=== PATIENT | female | born 1975 | race Caucasian/White ===

== ENCOUNTER → 2018-04-22 12:09 | Outpatient (CLI) | payer MEDICAID, SELFPAY ==
[2018-04-22 12:38] LABS: Basophils # 0.1 K/mm3 (0-0.2); Basophils % 0.8 % (0.1-2.0); Eosinophils # 0.2 K/mm3 (0.0-0.4); Eosinophils % 2.5 % (0.1-12.0); Hematocrit 44.2 % (37.0-47.0); Hemoglobin 14.1 g/dL (12.2-16.2); Lymphocytes # 1.4 K/mm3 (0.7-4.5); Lymphocytes % 22.5 % (10-50); Mean Corpuscular HGB Conc 31.8 g/dL (31.8-35.4); Mean Corpuscular Hemoglobin 30.5 pg (27.0-31.2); Mean Corpuscular Volume 95.8 fl (81-99); Mean Platelet Volume 7.1 fl (7.4-10.4); Monocytes # 0.2 K/mm3 (0.1-1.0); Neutrophils # 4.5 K/mm3 (1.8-7.8); Neutrophils % 71.3 % (37.0-80.0); Platelet Count 262 K/mm3 (142-424); Red Blood Count 4.62 M/mm3 (4.20-5.40); Red Cell Distribution Width 13.3 % (11.5-17.5); White Blood Count 6.3 K/mm3 (4.8-10.8)
[2018-04-22 13:24] LABS: Alanine Aminotransferase 21 U/L (12-78); Albumin Level 4.1 gm/dL (3.4-5.0); Albumin/Globulin Ratio 1.4 (1.1-1.8); Alkaline Phosphatase 62 U/L (46-116); Aspartate Amino Transferase 10 U/L (15-37); Bilirubin,Total 0.4 mg/dL (0.2-1.0); Blood Urea Nitrogen 8 mg/dL (7-18); Calcium 8.7 mg/dL (8.5-10.1); Carbon Dioxide 23 mmol/L (21.0-32.0); Chloride 108 mmol/L (98-107); Chol/HDL Ratio 4.6 (1-3.5); Cholesterol 172 mg/dL (140-200); Creatinine,Serum 0.91 mg/dL (0.55-1.02); Estimated Glomerular Filt Rate 68 ml/min (>60); GFR (African American) 82 ML/MIN (>60); Glucose 84 mg/dL (74-106); HDL Cholesterol 37 mg/dL (29-89); LDL Cholesterol 122 mg/dL (0-130); Sodium 142 mmol/L (136-145); T4 (Thyroxine) 8.9 ug/dl (4.7-13.3); Thyroid Stimulating Hormone 3.34 uIU/ml (0.358-3.740); Total Protein,Serum 7.1 gm/dL (6.4-8.2); Triglycerides 64 mg/dL (30-200); Triiodothryronine (T3) Uptake 34 % (31-39); VLDL Cholesterol 13 mg/dL (0-40)
[2018-04-23 10:32] LABS: Vitamin B12 301 pg/mL (232-1245)
== END ==
PROVIDERS: Visit Provider Internal Medicine Adolescent Medicine
DX: E78.2 Mixed hyperlipidemia (principal); F31.78 Bipolar disorder, in full remission, most recent episode mixed
CPT/HCPCS: 36415; 80053; 80061; 82607; 84436; 84443; 84479; 85025

== ENCOUNTER → 2018-08-16 12:10 | Outpatient (CLI) | payer MEDICAID, SELFPAY ==
--- NOTE | 2018-08-16 12:16 | NVE_ITS ---
Venous Exam Indications: 729.5 Pain in limb. IMPRESSIONS 1. There is no evidence of significant Reflux. 2. No evidence of deep or superficial vein thrombosis involving the left lower extremity Left lower extremity venous duplex evaluation. Doppler flow study including spectral analysis, color and paul scale imaging. Location: Vascular laboratory. Patient status: Outpatient. CRITICAL FINDINGS - Reported to: [facility] Ric - Read back and verified. - 08/16/18 - 1230 - Negative Tables: Venous flow and imaging: + +-------+ + Location Overall Flow properties + +-------+ + Left common femoral Patent Normal phasicity; spontaneous; normal augmentation; compressible + +-------+ + Left saphenofemoral junction Patent Compressible + +-------+ + Left profunda femoral Patent Compressible + +-------+ + Left femoral Patent Normal phasicity; spontaneous; normal augmentation; compressible + +-------+ + Left greater saphenous Patent Normal phasicity; spontaneous; normal augmentation; compressible + +-------+ + Left popliteal Patent Normal phasicity; spontaneous; normal augmentation; compressible + +-------+ + Left posterior tibial Patent Compressible + +-------+ + Left peroneal Patent Compressible + +-------+ + Left gastrocnemius Patent Compressible + +-------+ + Left soleal Patent Compressible + +-------+ + (Report amended ) Electronically signed by: Kodak Santos [id number]
== END ==
PROVIDERS: PCP Internal Medicine Adolescent Medicine; Visit Provider Nurse Practitioner Family
DX: M79.662 Pain in left lower leg (principal); M79.89 Other specified soft tissue disorders
CPT/HCPCS: 93971

== ENCOUNTER → 2018-11-15 14:49 | Outpatient (CLI) | payer MEDICAID, SELFPAY ==
--- NOTE | 2018-11-15 14:53 | XR_ITS ---
XR wrist LT w scaphoid CLINICAL INDICATION: ITS.REASON: scaphoid fracture ORDERING PHYSICIAN: Arabella Shepherd MD PATIENT AGE: 42 years Comparison: None FINDINGS: Bone density is normal except for 5 mm sclerotic density at the medial epiphysis of the radius. There is no acute fracture. Soft tissues and alignment appears normal. There is asymmetry of the intercarpal joint spaces and this is more prominent between the scaphoid and lunate bone measuring 2.7 mm. There is no scaphoid fracture. Impression: No acute fracture. Relative widening of the scapholunate intercarpal space compared to the other spaces. Correlate clinically since intercarpal ligament injury is not ruled out.
== END ==
PROVIDERS: PCP Internal Medicine Adolescent Medicine; Visit Provider Orthopaedic Surgery
DX: M95.8 Other specified acquired deformities of musculoskeletal system (principal); S62.002A Unspecified fracture of navicular [scaphoid] bone of left wrist, initial encounter for closed fracture
CPT/HCPCS: 73110

== ENCOUNTER → 2018-12-02 08:30 | Outpatient (CLI) | payer MEDICAID, SELFPAY ==
--- NOTE | 2018-12-02 08:34 | XR_ITS ---
XR wrist LT w scaphoid HISTORY pain ITS.REASON: lt scaphoid fracture ORDERING PHYSICIAN: Arabella Shepherd MD PATIENT AGE: 42 years Comparison: 11/15/2018 FINDINGS: No fracture or dislocation. No lytic or blastic change. There is normal mineralization.. The joint spaces are well-preserved. No significant degenerative/arthritic changes. No erosive changes evident.. There is a small area sclerosis involving subarticular portion of the distal radius medially. Scapholunate space on today's exam has an unremarkable appearance. IMPRESSION: No acute finding
== END ==
PROVIDERS: PCP Internal Medicine Adolescent Medicine; Visit Provider Orthopaedic Surgery
DX: S62.002A Unspecified fracture of navicular [scaphoid] bone of left wrist, initial encounter for closed fracture (principal)
CPT/HCPCS: 73110

== ENCOUNTER → 2018-12-11 07:49 | Outpatient (CLI) | payer MEDICAID, SELFPAY ==
--- NOTE | 2018-12-11 07:51 | MR_ITS ---
MR wrist LT wo con ORDERING PHYSICIAN : Arabella Shepherd MD PATIENT AGE: 42 years GENDER: Female HISTORY:ITS.REASON: evaluate for scaphoid fracture COMPARISON: 12/02/2018. TECHNIQUE: Routine FINDINGS: Alignment and joint spaces are normal. There is a small amount of fluid in the distal radial ulnar and the mid carpal joint spaces. Signal from the osseous marrow elements are normal except there is a small area of subchondral increased T2 signal at the distal ulna. There is also a somewhat irregular focus measuring 15 mm of intermediate T1 and peripheral increased T2 signal in the distal aspect of the capitate carpal bone. The remainder of the osseous marrow elements are of normal signal. The triangular fibrocartilage along the radial side appears to be intact however there is some central intermediate signal along the ulnar portion. There is no definite full-thickness abnormality involving the triangular fibrocartilage. The visualized intercarpal ligaments appear to be intact. The extensor and flexor tendons and the signal from the muscles appear to be normal. IMPRESSION: Degenerative change with subchondral reactive marrow edema involving distal ulna. There is some associated intermediate signal centrally within the ulnar side of the triangular fibrocartilage. This could be degenerative in nature. No definite full-thickness tear. Small reactive joint effusion involving distal radial ulnar and mid carpal compartment. Signal abnormality involving distal capitate bone is likely benign and could be a cavernous hemangioma. Other consideration would be a irregular intraosseous ganglion.
== END ==
PROVIDERS: PCP Internal Medicine Adolescent Medicine; Visit Provider Orthopaedic Surgery
DX: M25.532 Pain in left wrist (principal)
CPT/HCPCS: 73221

== ENCOUNTER → 2019-02-06 08:23 | Outpatient (CLI) | payer MEDICAID, SELFPAY ==
[2019-02-06 08:35] LABS: Basophils # 0.1 K/mm3 (0-0.2); Basophils % 1.1 % (0.1-2.0); Eosinophils # 0.2 K/mm3 (0.0-0.4); Eosinophils % 3.5 % (0.1-12.0); Hematocrit 43.5 % (37.0-47.0); Hemoglobin 14.3 g/dL (12.2-16.2); Lymphocytes # 1.2 K/mm3 (0.7-4.5); Lymphocytes % 19.9 % (10-50); Mean Corpuscular HGB Conc 32.9 g/dL (31.8-35.4); Mean Corpuscular Hemoglobin 31.1 pg (27.0-31.2); Mean Corpuscular Volume 94.3 fl (81-99); Monocytes # 0.4 K/mm3 (0.1-1.0); Monocytes % 5.7 % (1.7-9.3); Neutrophils # 4.4 K/mm3 (1.8-7.8); Neutrophils % 69.8 % (37.0-80.0); Platelet Count 280 K/mm3 (142-424); Red Blood Count 4.61 M/mm3 (4.20-5.40); White Blood Count 6.3 K/mm3 (4.8-10.8)
[2019-02-06 10:10] LABS: Alanine Aminotransferase 12 U/L (12-78); Albumin/Globulin Ratio 1.3 (1.1-1.8); Alkaline Phosphatase 59 U/L (46-116); Anion Gap 16.1 mEq/L (5-15); Aspartate Amino Transferase 12 U/L (15-37); Bilirubin,Total 0.5 mg/dL (0.2-1.0); Blood Urea Nitrogen 11 mg/dL (7-18); Calcium 8.8 mg/dL (8.5-10.1); Carbon Dioxide 22 mmol/L (21.0-32.0); Chloride 105 mmol/L (98-107); Chol/HDL Ratio 5.8 (1-3.5); Cholesterol 173 mg/dL (140-200); Creatinine,Serum 0.94 mg/dL (0.55-1.02); Estimated Glomerular Filt Rate 65 ml/min (>60); GFR (African American) 79 ML/MIN (>60); Glucose 97 mg/dL (74-106); HDL Cholesterol 30 mg/dL (29-89); LDL Cholesterol 122 mg/dL (0-130); Potassium 4.1 mmoL/L (3.5-5.1); Sodium 139 mmol/L (136-145); Thyroid Stimulating Hormone 2.21 uIU/ml (0.358-3.740); Triglycerides 106 mg/dL (30-200); VLDL Cholesterol 21 mg/dL (0-40)
== END ==
PROVIDERS: Visit Provider Internal Medicine Adolescent Medicine
DX: E78.2 Mixed hyperlipidemia (principal); E03.9 Hypothyroidism, unspecified; F31.78 Bipolar disorder, in full remission, most recent episode mixed
CPT/HCPCS: 36415; 80053; 80061; 84443; 85025

== ENCOUNTER 2020-05-22 16:44 | Emergency (ER) | payer OTHER, SELFPAY ==
[2020-05-22 17:20] VITALS: BP 130/99; PULSE 90; RESP 16; TEMP 36.7; O2SAT 100; BMI 23.3
--- NOTE | 2020-05-22 17:24 | XR_ITS ---
PROCEDURE: XR CHEST PORTABLE Referring Doctor: Frank Staton Patient Age:44Y CLINICAL HISTORY: COVID EXPOSURE COMPARISON: CR,RF UGIWO UGI SERIES W/O AIR from 12/30/[address] ANGIO CHEST from 07/15/2019 FINDINGS: AP portable upright chest performed today but there is a previous CT chest June 2019 for comparison The lungs are well expanded and I believe stable since the previous CT chest 07/15/2019. There is hyperexpansion with hyperlucency at the upper lung dave reflecting the early emphysematous changes seen on that prior CT. Left lung clear. Unremarkable. There is slight accentuation markings towards the right lung base-but there was some linear scarring here seen previously which most likely accounts for such. Doubt, unlikely early infiltrate but if symptoms progress follow-up suggested. Heart is normal in size leena and mediastinal structures unremarkable. Chest wall unremarkable. No pneumothorax and no pleural effusion. IMPRESSION: Nothing definitely acute Slight coarsening of lung markings right lung base noted-most likely reflects some minimal linear scarring and atelectasis appearance seen here on prior CT chest. Doubt but cannot exclude early infiltrate. If symptoms progress suggest follow-up two-view CXR Underlying developing emphysematous changes as seen on prior CT.. Hyperlucency/hyperexpansion evident at the mid and upper lung dave reflecting such. Dictated by: Kodak Santos MD 05/22/2020 18:14 Kodak Santos MD in [place] 05/22/2020 18:14
--- NOTE | 2020-05-22 17:47 | HMH.EDUTC ---
[facility] – [place] Disposition Clinical Impression: Exposure to COVID-19 virus, Bronchitis Disposition: Home, Self-Care Condition on Discharge: Good Instructions: DI for Acute Bronchitis, Preventing the Spread of Coronavirus Discharge Instructions Additional Instructions: Drink plenty of fluids. Take tylenol for pain or fever. Return if you begin to have difficulty breathing. Follow up with your regular doctor. GO TO THE ER FOR ANY WORSENING SYMPTOMS Prescriptions: Cefdinir [Omnicef 300mg Capsule] 300 mg PO BID #20 cap Transmission Status: Received by [facility] #[id number] Benzonatate [Tessalon Perle 100mg Cap] 100 mg PO TIDP PRN #30 cap PRN Reason: Cough Transmission Status: Received by [facility] [facility] #[id number] Referrals: Ozzy Taylor MD [Primary Care Provider] - Time of Disposition: 18:01 Medical Decision Making - Medical Records Medical records reviewed: No: I reviewed the patient's medical records. - Ciaran Inquiry Pt receiving controlled substance: No Vital Signs: 05/22/20 17:20 05/22/20 18:03 Temperature 98.0 F 98.0 F Temperature Source Oral Pulse Rate 90 Pulse Rate [Right Brachial] 90 Respiratory Rate 16 16 Blood Pressure 130/99 H Blood Pressure [Right Arm] 130/99 H Blood Pressure Mean [Right Arm] 109 Blood Pressure Source [Right Arm] Automatic Cuff Blood Pressure Position [Right Arm] Sitting 02 Sat by Pulse Oximetry 100 Oxygen Delivery Method Room Air Orders (Tests/Meds): ORDERS Category Date Time Status Covid-19 Nasal PCR ([facility]) Routine Lab 05/22/20 17:20 Received [facility] – [place] HPI - General Stated complaint: Headache; SOB; congestion Time Seen by Provider: 05/22/20 17:47 Mode of Arrival: Ambulatory Source of Information: Patient Limitations: No Limitations Description of Symptoms (Recalled from Triage Doc. by RN): PATIENT C/O HEADACHE, SOA, BODY ACHES, FATIGUE AND CONGESTION X 6 DAYS HEENT Symptoms (Recalled from RN notes): No Resp Symptoms (Recalled from RN notes): No Skin Symptoms (Recalled from RN notes): No MS Symptoms (Recalled from RN notes): No Functional Status (Recalled from RN notes): WNL - History of Present Illness Provider Complaint: She states that for the past 6 days she has been having a cough, sore throat, and feeling bad. She has been exposed to covid by a household contact. - Related Data Home Medications Medication Instructions Recorded Confirmed aspirin 81 mg tablet,delayed 81 mg PO DAILY 11/15/18 12/16/18 release bupropion HCl 150 mg 24 hr tablet, 150 mg PO DAILY 11/15/18 12/16/18 extended release lamotrigine 100 mg tablet 100 mg PO DAILY 11/15/18 12/16/18 levothyroxine 150 mcg capsule 150 mcg PO DAILY 11/15/18 12/16/18 pantoprazole 40 mg tablet,delayed 40 mg PO DAILY 11/15/18 12/16/18 release topiramate 25 mg capsule,extended 25 mg PO DAILY 11/15/18 12/16/18 release 24 hr Previous Rx's Medication Instructions Recorded Benzonatate [Tessalon Perle 100mg 100 mg PO TIDP PRN #30 cap 05/22/20 Cap] Cefdinir [Omnicef 300mg Capsule] 300 mg PO BID #20 cap 05/22/20 Allergies Allergy/AdvReac Type Severity Reaction Status Date / Time hydrocodone [From Vicoprofen] Allergy Severe itching Verified 12/16/18 14:18 ibuprofen [From Vicoprofen] Allergy Severe itching Verified 12/16/18 14:18 erythromycin base Allergy Verified 05/22/20 17:41 - Worker's Comp Is this a Worker's Comp case?: No [facility] History - Hepatitis A Screen Drug use history?: No High risk sexual behaviors?: No History of sexually transmitted infection?: No Currently employed?: No Childcare worker?: No Do you have indoor plumbing?: Yes Do you have electricity?: Yes Attestation statement:: This patient has been screened for Hepatitis A risk factors. I have reviewed the patient's past medical history: Yes Other Surgeries: Yes: No Previous Surgery - Social History Smoking Status: Current every day smoker Tobacco Type: cigarette
[2020-05-22 18:03] VITALS: BP 130/99; PULSE 90; RESP 16; TEMP 36.7; O2SAT 100
--- NOTE | 2020-05-22 21:01 | PC.NURSE ---
patient notified of positive covid test
== END 2020-05-22 18:09 | disposition home or self-care (01) ==
PROVIDERS: Emergency Provider Nurse Practitioner Family; PCP Internal Medicine Adolescent Medicine
DX: U07.1 COVID-19 (principal); F17.210 Nicotine dependence, cigarettes, uncomplicated
CPT/HCPCS: 71045; 99202; G0463; U0003

== ENCOUNTER 2020-05-27 13:36 | Emergency (ER) | payer OTHER, SELFPAY ==
[2020-05-27 13:37] VITALS: BP 128/90; PULSE 99; RESP 20; TEMP 36.9; O2SAT 96; BMI 24.0
--- NOTE | 2020-05-27 13:49 | HMH.EDGENADL ---
ED Disposition Clinical Impression: COVID-19 virus infection, Pleurodynia Disposition: Home, Self-Care Condition on Discharge: Good Instructions: DI for Pleurisy, DI for COVID-19 (Suspected or Confirmed ) Additional Instructions: Tylenol for pain. Return to the emergency room if worsening shortness of breath, severe weakness, or vomiting and unable to hold down liquids. Referrals: Frank Cuevas MD [Primary Care Provider] - - Critical Care Critical Care Time: No Attestation: On 05/27/20, the high probability of a clinically significant, sudden or life threatening deterioration of the following system(s) required my full and direct attention, intervention and personal management. The time I documented below is in addition to time spent performing reported procedures but includes the following listed in this critical care notation. Medical Decision Making - Ciaran Inquiry Pt receiving controlled substance: No Vital Signs: 05/27/20 13:37 05/27/20 14:15 05/27/20 15:10 Temperature 98.5 F Temperature Source Oral Pulse Rate Pulse Rate [Right Radial] 99 H 72 63 Respiratory Rate 20 20 18 Blood Pressure Blood Pressure [Right Arm] 128/90 117/76 114/78 Blood Pressure Mean [Right Arm] 102 89 90 Blood Pressure Source [Right Arm] Automatic Cuff Automatic Cuff Automatic Cuff Blood Pressure Position Blood Pressure Position [Right Arm] Sitting Sitting Sitting 02 Sat by Pulse Oximetry 96 97 99 Oxygen Delivery Method Room Air 05/27/20 15:35 05/27/20 15:45 Temperature 98 F Temperature Source Oral Pulse Rate 87 Pulse Rate [Right Radial] 70 Respiratory Rate 18 18 Blood Pressure 153/74 H Blood Pressure [Right Arm] 128/89 Blood Pressure Mean [Right Arm] 102 Blood Pressure Source [Right Arm] Automatic Cuff Blood Pressure Position Sitting Blood Pressure Position [Right Arm] Sitting 02 Sat by Pulse Oximetry 99 Oxygen Delivery Method Room Air - Lab Data Lab results reviewed: Yes: I reviewed the patient's lab results. Lab Results 05/27/20 13:50: WBC 5.7, RBC 4.70, Hgb 14.4, Hct 45.0, MCV 95.6, MCH 30.6, MCHC 32.0, RDW 12.6, Plt Count 245, MPV 7.6, Neut % (Auto) 61.9, Lymph % (Auto) 28.8, [place] % (Auto) 4.6, Eos % (Auto) 3.5, Baso % (Auto) 1.3, Neut # (Auto) 3.5, Lymph # (Auto) 1.7, [place] # (Auto) 0.3, Eos # (Auto) 0.2, Baso # (Auto) 0.1 05/27/20 13:50: Sodium 141, Potassium 3.6, Chloride 108 H, Carbon Dioxide 21 L, Anion Gap 15.6 H, BUN 12, Creatinine 0.90, Estimated Creat Clear 91, Estimated GFR 68, Est GFR ( Amer) 83, Glucose 102 H, Calcium 9.7, Total Bilirubin 0.4, AST 23, ALT 11 L, Alkaline Phosphatase 55, Total Protein 7.5, Albumin 4.5, Globulin 3.0, Albumin/Globulin Ratio 1.5 05/27/20 13:50: Lactate 1.0 Result diagrams: 05/27/20 13:50 05/27/20 13:50 Orders (Tests/Meds): ED MEDICATIONS Discontinued Medications Generic Name Dose Route Start Last Admin Trade Name Jey PRN Reason Stop Dose Admin Sodium Chloride 1,000 mls @ 999 mls/hr 05/27/20 14:15 05/27/20 14:40 Sod Chlor 0.9% 1000ml Bag IV 05/27/20 15:15 999 mls/hr .Q1H1M YANET Administration Iopamidol 70 ml 05/27/20 14:33 05/27/20 14:34 Iopamidol-370 (76%);100ml Bottle IV 05/27/20 14:34 70 ml ONCE ONE Administration Sodium Chloride 50 ml 05/27/20 14:33 05/27/20 14:34 0.9 % Sodium Chloride 50 Ml Vial IV 05/27/20 14:34 50 ml ONCE ONE Administration Sodium Chloride 10 ml 05/27/20 14:33 05/27/20 14:34 Sodium Chloride 0.9% 10ml Syr (Rad Only) IV 05/27/20 14:34 10 ml ONCE ONE Administration ORDERS Category Date Time Status Blood Culture Stat Micro 05/27/20 13:50 Received - Radiology Data #1 Image(s): Chest Image Reviewed: Yes I reviewed the patient's radiology image Preliminary Findings: Normal/NAD - CT Data CT Scan: Chest (CTA) Time Received: 15:[address] Reviewed: Yes: I have viewed the radiologist's interpretation Findings Narrative: PROCEDURE: CT AN
[2020-05-27 14:07] VITALS: BMI 24.0
--- NOTE | 2020-05-27 14:11 | XR_ITS ---
PROCEDURE: XR CHEST PORTABLE CLINICAL HISTORY: SOA / COMPARISON: CR XR CHEST PORTABLE from 05/22/[address] ANGIO CHEST from 05/27/2020 FINDINGS: The cardiomediastinal silhouette and pulmonary vascularity are within normal limits. The lungs are clear without infiltrates, suspicious nodules, or pleural effusions. No acute bony abnormalities. IMPRESSION: No acute findings. Dictated by: Prashant Lamas MD 05/27/2020 16:31 Prashant Lamas MD in [place] 05/27/2020 16:31
--- NOTE | 2020-05-27 14:14 | CT_ITS ---
PROCEDURE: CT ANGIO CHEST CLINCIAL INDICATION: covid-19, soa, pleuritic chest pain COMPARISON: CT CT ANGIO CHEST from 07/15/2019 TECHNIQUE: IV Contrast: 70ML Isovue 370 Axial images obtained with sagittal and coronal reformats. All CT scans at the facility use one or more dose reduction, viz: automated exposure control, ma/kV adjustment per patient size (including targeted exams where dose is matched to indication, i.e. head), or iterative reconstruction technique. FINDINGS: No evidence of aortic aneurysm or dissection. No evidence of pulmonary embolus. There are mildly prominent mediastinal lymph nodes present not significantly changed. Centrilobular emphysema. No lobar consolidation or collapse. No areas of infiltrate or effusion. Small nodes are present in the left axilla IMPRESSION: 1. No acute finding. No evidence of pulmonary embolus or pneumonic infiltrate. 2. Centrilobular emphysema. 3. Mildly prominent mediastinal and left axillary lymph nodes not significantly changed Dictated by: Prashant Lamas MD 05/27/2020 14:57 Prashant Lamas MD in [place] 05/27/2020 14:57
[2020-05-27 14:15] VITALS: BP 117/76; PULSE 72; RESP 20; O2SAT 97
[2020-05-27 14:21] LABS: Basophils # 0.1 K/mm3 (0-0.2); Basophils % 1.3 % (0.1-2.0); Eosinophils # 0.2 K/mm3 (0.0-0.4); Eosinophils % 3.5 % (0.1-12.0); Hemoglobin 14.4 g/dL (12.2-16.2); Lymphocytes # 1.7 K/mm3 (0.7-4.5); Lymphocytes % 28.8 % (10-50); Mean Corpuscular Hemoglobin 30.6 pg (27.0-31.2); Mean Corpuscular Volume 95.6 fl (81-99); Mean Platelet Volume 7.6 fl (7.4-10.4); Monocytes # 0.3 K/mm3 (0.1-1.0); Monocytes % 4.6 % (1.7-9.3); Neutrophils # 3.5 K/mm3 (1.8-7.8); Neutrophils % 61.9 % (37.0-80.0); Platelet Count 245 K/mm3 (142-424); Red Cell Distribution Width 12.6 % (11.5-17.5); White Blood Count 5.7 K/mm3 (4.8-10.8)
[2020-05-27 14:23] LABS: Chloride 108 mmol/L (98-107); Potassium 3.6 mmoL/L (3.5-5.1); Sodium 141 mmol/L (136-145)
[2020-05-27 14:26] LABS: Alanine Aminotransferase 11 U/L (12-78); Alkaline Phosphatase 55 U/L (38-126); Anion Gap 15.6 mEq/L (5-15); Aspartate Amino Transferase 23 U/L (14-36); Bilirubin,Total 0.4 mg/dl (0.2-1.3); Blood Urea Nitrogen 12 mg/dl (7-17); Carbon Dioxide 21 mmol/L (22.0-30.0); Creatinine Clearance Estimated 91 mL/min (50-200); Estimated Glomerular Filt Rate 68 ml/min (>60); GFR (African American) 83 ML/MIN (>60)
[2020-05-27 14:27] LABS: Albumin Level 4.5 g/dl (3.5-5.0); Albumin/Globulin Ratio 1.5 (1.1-1.8); Calcium 9.7 mg/dl (8.4-10.2); Glucose 102 mg/dl (74-100); Total Protein,Serum 7.5 g/dl (6.3-8.2)
[2020-05-27 15:10] VITALS: BP 114/78; PULSE 63; RESP 18; O2SAT 99
[2020-05-27 15:35] VITALS: BP 128/89; PULSE 70; RESP 18; O2SAT 99
[2020-05-27 15:45] VITALS: BP 153/74; PULSE 87; RESP 18; TEMP 36.6; O2SAT 98
== END 2020-05-27 15:47 | disposition home or self-care (01) ==
PROVIDERS: Emergency Provider Emergency Medicine; PCP Internal Medicine Adolescent Medicine
DX: U07.1 COVID-19 (principal); R07.81 Pleurodynia; F17.210 Nicotine dependence, cigarettes, uncomplicated
CPT/HCPCS: 71045; 71275; 80053; 83605; 85025; 87040; 96365; 99284; Q9967

== ENCOUNTER → 2020-09-08 10:53 | Outpatient (CLI) | payer OTHER, SELFPAY ==
--- NOTE | 2020-09-08 11:07 | MM_ITS ---
PROCEDURE: MM STEREOTACTIC LOC LT CLINICAL INDICATION: LT BREAST MASS Left breast calcifications. TECHNIQUE: Patient's mammogram or from an outside institution. Demonstrating the suspicious calcifications in the 3 o'clock region of the left breast. The patient was given 1 mg of Xanax for minor sedation.. The patient was placed on the stereotactic table and the abnormality was localized in the most appropriate projection. The breast was prepped in the routine manner, with sterile prep and the overlying skin anesthetized. A 3 to 4 mm skin incision was performed and the 9 gauge sorus vacuum-assisted core biopsy needle was advanced to the region of the calcification. Pre- and post fire images were obtained. After adequate positioning relative to the calcifications was ensured, multiple biopsies were obtained in the region of the calcifications specifically. The core biopsies obtained were sent for specimen mammography. After the calcifications were indeed identified on the specimen mammogram, the procedure was terminated. The patient tolerated the procedure well without complications. Specimen was sent for pathologic analysis. A tiny titanium nonferromagnetic MicroMark was positioned through the mammotome needle into the biopsy site. Specimen radiograph: Multiple calcifications are demonstrated within the specimen. Pathology: Non proliferative fibrocystic changes with columnar cell change. Microcalcifications are noted. Negative for in situ and invasive malignancy. IMPRESSION: Uneventful stereotactic directed biopsy of the left breast showing benign findings. SPECIMEN RADIOGRAPH: The mammographically evident calcifications from the prior study are currently evident within the Adriana dish and within the specimens obtained during mammotome procedure. This is considered an adequate specimen and the procedure was terminated. IMPRESSION: Successful removal of described breast calcifications. BREAST MAMMOGRAM: Compared to the prior study, the previously noted calcification in the left breast at 3 o'clock have been removed. A small MicroMark clip was inserted into the region of the calcifications. There is evidence of soft tissue changes in the region of the biopsy was soft tissue gas and edema. 1. Adequate placement of the MicroMark clip postbiopsy. 2. Postbiopsy changes within the breast. 3. Suggest 6 month mammographic follow-up per routine protocol. Dictated by: Prashant Lamas MD 09/11/2020 17:25 Prashant Lamas MD in [place] 09/11/2020 17:25
== END ==
PROVIDERS: PCP Internal Medicine Adolescent Medicine; Visit Provider Internal Medicine Adolescent Medicine
DX: N63.20 Unspecified lump in the left breast, unspecified quadrant (principal); R92.1 Mammographic calcification found on diagnostic imaging of breast
CPT/HCPCS: 19081; 76098; 77065

== ENCOUNTER 2021-03-20 17:18 | Emergency (ER) | payer OTHER, SELFPAY ==
[2021-03-20 18:00] VITALS: BP 115/81; PULSE 83; RESP 21; TEMP 36.6; O2SAT 100; BMI 24.8
--- NOTE | 2021-03-20 18:16 | HMH.EDUTC ---
[facility] – [place] Disposition Clinical Impression: Sinusitis Qualifiers: Sinusitis location: unspecified location Chronicity: unspecified Qualified Code(s): J32.9 - Chronic sinusitis, unspecified Disposition: Home, Self-Care Condition on Discharge: Good Instructions: Sinusitis, DI for Sinusitis, Amoxicillin and Clavulanic Acid Additional Instructions: *Monitor Temp, Over the counter Motrin or Tylenol as directed/as needed Tylenol every 4 hours and Motrin every 6 hours (as long as your family doctor has told you that you can take it) for fever or pain. and straight to ER if unable to lower temp less than 101.0 after medication given *Warm salt water gargles may help to soothe the throat *Throat Lozenges *Warm fluids like tea with honey may help to soothe the throat *Sleep elevated *Humidifier/Vaporizer *Flonase 2 sprays in each nostril daily but be aware that it may take 2-3 days before you notice improvement Take medication as prescribed Return if needed Follow up IMMEDIATELY for new or worsening symptoms or no Noticeable improvement over the next 48-72 hours. 911 for difficulty breathing or swallowing Prescriptions: Amoxicillin/Potassium Clav [Augmentin 875-125 Tablet] 1 tab PO Q12H 7 Days #14 tab Transmission Status: Pending to [facility] methylPREDNISolone [Medrol 4mg tab] 4 mg PO DIRECTED #21 tab Transmission Status: Pending to [facility] Referrals: Ozzy Taylor MD [Primary Care Provider] - As needed Forms: Work/School Release Medical Decision Making - Ciaran Inquiry Pt receiving controlled substance: No Ciaran was queried for this patient: No Vital Signs: 03/20/21 18:00 Temperature 97.8 F Temperature Source Oral Pulse Rate [Right Brachial] 83 Respiratory Rate 21 Blood Pressure [Left Arm] 115/81 Blood Pressure Mean [Left Arm] 92 Blood Pressure Source [Left Arm] Automatic Cuff Blood Pressure Position [Left Arm] Sitting 02 Sat by Pulse Oximetry 100 Oxygen Delivery Method Room Air [facility] – [place] HPI - General Stated complaint: weak,RANDHAWA, congestion,runny nose Time Seen by Provider: 03/20/21 18:16 Mode of Arrival: Ambulatory Source of Information: Patient Limitations: No Limitations Description of Symptoms (Recalled from Triage Doc. by RN): PATIENT C/O HEADACHE, CONGESTION, RUNNY NOSE, AND SINUS PRESSURE SINCE LAST SUNDAY HEENT Symptoms (Recalled from RN notes): Yes Resp Symptoms (Recalled from RN notes): Yes Skin Symptoms (Recalled from RN notes): No MS Symptoms (Recalled from RN notes): No Functional Status (Recalled from RN notes): WNL - History of Present Illness Provider Complaint: Patient states that she has been sick for almost 2 weeks States that she has been having sinus pain and pressure, sore throat, and headache states that she thought it may be allergies so she waited but it has continued to get worse States that today she is feeling worse so she came in to get checked - Related Data Home Medications Medication Instructions Recorded Confirmed aspirin 81 mg tablet,delayed 81 mg PO DAILY 11/15/18 12/16/18 release bupropion HCl 150 mg 24 hr tablet, 150 mg PO DAILY 11/15/18 12/16/18 extended release lamotrigine 100 mg tablet 100 mg PO DAILY 11/15/18 12/16/18 levothyroxine 150 mcg capsule 150 mcg PO DAILY 11/15/18 12/16/18 pantoprazole 40 mg tablet,delayed 40 mg PO DAILY 11/15/18 12/16/18 release topiramate 25 mg capsule,extended 25 mg PO DAILY 11/15/18 12/16/18 release 24 hr Previous Rx's Medication Instructions Recorded Benzonatate [Tessalon Perle 100mg 100 mg PO TIDP PRN #30 cap 05/22/20 Cap] Cefdinir [Omnicef 300mg Capsule] 300 mg PO BID #20 cap 05/22/20 Amoxicillin/Potassium Clav 1 tab PO Q12H 7 Days #14 tab 03/20/21 [Augmentin 875-125 Tablet] methylPREDNISolone [Medrol 4mg 4 mg PO DIRECTED #21 tab 03/20/21 tab] Allergies Allergy/AdvReac Type Severity Reaction Status Date / Time hydrocodone [From Vicoprofen] Allergy Sev
[2021-03-20 18:33] VITALS: BP 115/81; PULSE 83; RESP 21; TEMP 36.6; O2SAT 100
== END 2021-03-20 18:36 | disposition home or self-care (01) ==
PROVIDERS: Emergency Provider Nurse Practitioner; PCP Internal Medicine Adolescent Medicine
DX: J32.9 Chronic sinusitis, unspecified (principal); F17.210 Nicotine dependence, cigarettes, uncomplicated; Z88.6 Allergy status to analgesic agent
CPT/HCPCS: 99202; G0463

== ENCOUNTER 2023-02-21 19:55 | Emergency (ER) | payer OTHER, SELFPAY ==
[2023-02-21 19:56] VITALS: BP 125/86; PULSE 69; RESP 17; TEMP 36.6; O2SAT 99; BMI 24.3
--- NOTE | 2023-02-21 22:21 | PC.NURSE ---
rounded on pt, has been provided a pillow and blanket. no other concerns at this time
[2023-02-21 23:40] VITALS: BP 120/70; PULSE 71; RESP 16; TEMP 36.8; O2SAT 98
--- NOTE | 2023-02-22 16:00 | HMH.EDGENADL ---
Discharge Plan Disposition Patient Disposition: Home, Self-Care Prescriptions Prescriptions: No Action bupropion HCl 150 mg tablet extended release 24 hr 150 mg PO DAILY lamotrigine 100 mg tablet 100 mg PO DAILY levothyroxine 150 mcg capsule 150 mcg PO DAILY topiramate 25 mg capsule,extended release 24hr 25 mg PO DAILY pantoprazole 40 mg tablet,delayed release (DR/EC) 40 mg PO DAILY aspirin [Adult Low Dose Aspirin] 81 mg tablet,delayed release (DR/EC) 81 mg PO DAILY benzonatate 100 MG capsule 100 mg PO TIDP PRN (Reason: Cough) Qty: 30 0RF cefdinir 300 MG capsule 300 mg PO BID Qty: 20 0RF methylprednisolone 4 MG tablet 4 mg PO DIRECTED Qty: 21 0RF Rx Instructions: Take as directed on package instructions amoxicillin-pot clavulanate 1 EACH tablet 1 tab PO Q12H 7 Days Qty: 14 0RF Referrals Follow up/Referrals: Ozzy Taylor MD [Primary Care Provider] - See instructions Clinical Impressions Clinical Impression: Dog bite Instructions Patient Instructions: DI for Laceration Repair Discharge ED Provider: Celso Simmons General Adult HPI General Chief complaint: Wound/Laceration Stated complaint: [id number] RT foot dog bite Time Seen by Provider: 02/21/23 20:20 Mode of Arrival: Ambulatory Source of Information: Patient Limitations: No Limitations Description of Symptoms (Recalled from ER Triage Doc. by RN): 47 F presents with a dog bite to her right foot from a toy poodle. Patient reports this is her mom's dog that she accidently stepped on. Dog is up to date on shots. Patient unsure of her last tetanus shot. History of Present Illness HPI narrative: The patient presents with a chief complaint of a dog bite on her toe, which occurred approximately two hours prior to the visit. The dog is reported to be up to date on its vaccinations, and the patient has already received a tetanus shot. She has a medical history of taking aspirin and other medications, which she has provided a list of. She reports allergies to erythromycin and Vicoprofen. The patient is experiencing pain in the affected foot, which she describes as cold. She denies any numbness or tingling in the foot or toe. The patient reports no other pain or discomfort elsewhere in the body. She has no history of seizure disorders. Related Data Home Medications Medication Instructions Recorded Confirmed aspirin 81 mg tablet,delayed 81 mg PO DAILY 11/15/18 12/16/18 release (Adult Low Dose Aspirin) bupropion HCl 150 mg 24 hr tablet, 150 mg PO DAILY 11/15/18 12/16/18 extended release lamotrigine 100 mg tablet 100 mg PO DAILY 11/15/18 12/16/18 levothyroxine 150 mcg capsule 150 mcg PO DAILY 11/15/18 12/16/18 pantoprazole 40 mg tablet,delayed 40 mg PO DAILY 11/15/18 12/16/18 release topiramate 25 mg capsule,extended 25 mg PO DAILY 11/15/18 12/16/18 release 24 hr Previous Rx's Medication Instructions Recorded benzonatate 100 mg capsule 100 mg PO TIDP PRN Cough #30 caps 05/22/20 cefdinir 300 mg capsule 300 mg PO BID #20 caps 05/22/20 amoxicillin 875 mg-potassium 1 tab PO Q12H 7 days #14 tabs 03/20/21 clavulanate 125 mg tablet methylprednisolone 4 mg tablet 4 mg PO DIRECTED #21 tabs 03/20/21 Allergies Allergy/AdvReac Type Severity Reaction Status Date / Time hydrocodone [From Vicoprofen] Allergy Severe itching Verified 12/16/18 14:18 ibuprofen [From Vicoprofen] Allergy Severe itching Verified 12/16/18 14:18 erythromycin base Allergy Verified 05/22/20 17:41 [facility] Disclaimer: The information contained in this section may have been updated after the patient was seen, as this information can be updated by other users. Social History Smoking Status: Current every day smoker tobacco type: cigarettes packs per day: 1 second hand exposure: Yes alcohol intake: never current occupational status: other Travel in the last 8 weeks: None ROS [employer]
== END 2023-02-22 01:05 | disposition home or self-care (01) ==
PROVIDERS: Emergency Provider Emergency Medicine; PCP Internal Medicine Adolescent Medicine
DX: S91.351A Open bite, right foot, initial encounter (principal); F17.210 Nicotine dependence, cigarettes, uncomplicated; W54.0XXA Bitten by dog, initial encounter
CPT/HCPCS: 90714; 96372; 99283

== ENCOUNTER 2023-10-02 20:41 | Emergency (ER) | payer OTHER, SELFPAY ==
[2023-10-02 20:42] VITALS: BP 136/87; PULSE 71; RESP 16; TEMP 36.8; O2SAT 97; BMI 24.3
--- NOTE | 2023-10-02 20:59 | CT_ITS ---
PROCEDURE INFORMATION: Exam: CT Abdomen And Pelvis With Contrast Exam date and time: 10/02/2023 9:17 PM Age: 47 years old Clinical indication: Abdominal pain; Additional info: Severe rlq pain TECHNIQUE: Imaging protocol: Computed tomography of the abdomen and pelvis with contrast. Radiation optimization: All CT scans at this facility use at least one of these dose optimization techniques: automated exposure control; mA and/or kV adjustment per patient size (includes targeted exams where dose is matched to clinical indication); or iterative reconstruction. Contrast material: ISOVUE; Contrast volume: 75 ml; Contrast route: IV; COMPARISON: 1. CT ANGIO CHEST 05/27/2020 2:[address] ANGIO CHEST 07/15/2019 3:03 PM 3. CR XR CHEST PORTABLE 05/27/2020 2:31 PM FINDINGS: Lungs: There are areas of subpleural reticulation throughout the visualized lungs which are nonspecific. Heart: Trace pericardial fluid which is likely physiologic. Liver: Normal. Gallbladder and bile ducts: The patient is status post cholecystectomy. Pancreas: Normal. Spleen: There are multiple calcifications in the spleen most likely reflects small granulomas. Adrenal glands: The adrenal glands appear normal. Kidneys and ureters: There are no soft tissue renal masses or hydronephrosis. Stomach and bowel: The stomach, small bowel, and colon are well-distended and show no evidence of wall thickening, masses, or obstruction. Appendix: The appendix is normal in appearance. Intraperitoneal space: There is a small volume of free fluid in the pelvis. Vasculature: The abdominal aorta and its major branches appear normal without evidence of aneurysm or stenosis. There are pelvic phleboliths. Lymph nodes: No lymphadenopathy. Urinary bladder: Unremarkable as visualized. Reproductive: Bilateral tubal ligation clips are noted. There are bilateral adnexal cysts measuring up to 2 cm, further evaluation with pelvic ultrasound could be considered. Bones/joints: The visualized osseous structures of the abdomen and pelvis appear normal for patient age. Soft tissues: There is a small fat containing umbilical hernia. IMPRESSION: 1. Normal appendix. 2. Bilateral adnexal cysts and free fluid in the pelvis, further evaluation with pelvic ultrasound can be considered
[2023-10-02 21:03] LABS: Microscopic, Urine URINE MICROSCOPIC (MICROSCOPIC)
[2023-10-02 21:05] LABS: Appearance,Urine CLEAR (Clear); Bilirubin,Urine Negative (Negative); Blood, Urine Negative (Negative); Color,Urine YELLOW (Yellow); Glucose,Urine (UA) Negative (Negative); Ketones,Urine Negative (Negative); Leukocyte Esterase,Urine Negative (Negative); Nitrate,Urine Negative (Negative); Protein,Urine Negative (Negative); Urobilinogen,Urine 0.2 EU/dl (0.2)
[2023-10-02 21:13] LABS: Basophils # 0.1 K/mm3 (0-0.2); Basophils % 1.4 % (0.1-2.0); Eosinophils # 0.2 K/mm3 (0.0-0.4); Eosinophils % 3.5 % (0.1-12.0); Lymphocytes % 33.9 % (10-50); Mean Corpuscular HGB Conc 32.6 g/dL (31.8-35.4); Mean Corpuscular Hemoglobin 32.4 pg (27.0-31.2); Mean Corpuscular Volume 99.3 fl (81-99); Mean Platelet Volume 7.9 fl (7.4-10.4); Monocytes # 0.2 K/mm3 (0.1-1.0); Monocytes % 4.1 % (1.7-9.3); Neutrophils # 3.3 K/mm3 (1.8-7.8); Neutrophils % 57.1 % (37.0-80.0); Platelet Count 223 K/mm3 (142-424); Red Blood Count 4.33 M/mm3 (4.20-5.40); Red Cell Distribution Width 13.2 % (11.5-17.5); White Blood Count 5.8 K/mm3 (4.8-10.8)
[2023-10-02] MEDS: IOPAMIDOL-370 (76%);100ML BOTTLE 75 ML IV (21:19)
[2023-10-02] MEDS: SODIUM CHLORIDE 0.9% 10ML SYR (RAD ONLY) 10 ML IV (21:19)
[2023-10-02 21:20] LABS: Alanine Aminotransferase 16 U/L (12-78); Albumin/Globulin Ratio 1.7 (1.1-1.8); Alkaline Phosphatase 41 U/L (38-126); Anion Gap 12.7 mEq/L (5-15); Aspartate Amino Transferase 22 U/L (14-36); Bilirubin,Total 0.4 mg/dl (0.2-1.3); Blood Urea Nitrogen 10 mg/dl (7-17); Calcium 9.1 mg/dl (8.4-10.2); Carbon Dioxide 26 mmol/L (22.0-30.0); Chloride 105 mmol/L (98-107); Creatinine Clearance Estimated 115 mL/min (50-200); Estimated Glomerular Filt Rate 90 ml/min (>60); GFR (African American) 109 ML/MIN (>60); Globulin 2.4 g/dL (1.3-3.2); Glucose 102 mg/dl (74-100); Lipase 112 U/L (23-300); Potassium 3.7 mmoL/L (3.5-5.1); Sodium 140 mmol/L (136-145); Total Protein,Serum 6.4 g/dl (6.3-8.2)
[2023-10-02] MEDS: diphenhydrAMINE 50MG/ML VIAL 25 MG IV (21:23)
[2023-10-02] MEDS: LACTATED RINGERS 1000ML 1,000 ML 999 ML IV (21:23)
[2023-10-02] MEDS: KETOROLAC 30MG/ML VIAL 15 MG IV (21:23)
[2023-10-02 21:30] VITALS: BP 145/90; PULSE 65; O2SAT 97
[2023-10-02 21:34] LABS: Bacteria,Urine 1+ /lpf
[2023-10-02 22:00] VITALS: BP 125/87; PULSE 60; O2SAT 98
--- NOTE | 2023-10-02 22:05 | ED_ITS ---
Discharge Plan Disposition Patient Disposition: Home, Self-Care Prescriptions Prescriptions: New ketorolac 10 mg tablet 10 mg PO Q8H PRN (Reason: pain) 1 Days Qty: 10 0RF No Action bupropion HCl 150 mg tablet extended release 24 hr 150 mg PO DAILY lamotrigine 100 mg tablet 100 mg PO DAILY levothyroxine 150 mcg capsule 150 mcg PO DAILY topiramate 25 mg capsule,extended release 24hr 25 mg PO DAILY pantoprazole 40 mg tablet,delayed release (DR/EC) 40 mg PO DAILY aspirin [Adult Low Dose Aspirin] 81 mg tablet,delayed release (DR/EC) 81 mg PO DAILY Clenpiq 10 mg-3.5 gram- 12 gram/175 mL solution 175 ml PO DAILY Qty: 350 0RF Rx Instructions: take first dose at 5-9PM evening before colonoscopy; 2nd dose the next day approximately 5 hrs before colonoscopy benzonatate 100 MG capsule 100 mg PO TIDP PRN (Reason: Cough) Qty: 30 0RF cefdinir 300 MG capsule 300 mg PO BID Qty: 20 0RF methylprednisolone 4 MG tablet 4 mg PO DIRECTED Qty: 21 0RF Rx Instructions: Take as directed on package instructions amoxicillin-pot clavulanate 1 EACH tablet 1 tab PO Q12H 7 Days Qty: 14 0RF Referrals Follow up/Referrals: Ozzy Taylor MD [Primary Care Provider] - See instructions Activity Restrictions/Add. Instructions Additional Instructions/Restrictions: Call your family doctor to establish care for this visit to the emergency department and schedule follow-up within 48 hours to ensure improvement. If you have any worsening of your condition or any other concerning signs or symptoms, return to the emergency department or your primary care doctor for further evaluation. Clinical Impressions Clinical Impression: Ovarian cyst rupture Instructions Patient Instructions: DI for Acute Abdominal Pain Discharge ED Provider: Niels Barriga General Adult HPI General Chief complaint: Abdominal Pain Stated complaint: Abdominal Pain and back pain Time Seen by Provider: 10/02/23 20:48 Mode of Arrival: Ambulatory Source of Information: Patient Limitations: No Limitations Description of Symptoms (Recalled from ER Triage Doc. by RN): Pt presents with RLQ radiating into right flank that started today. Pt states she has a lot of nausea and 2 episodes of vomiting. Denies any urinary symptoms. History of Present Illness HPI narrative: 47-year-old female history of hypertension, cholecystectomy, tubal ligation presenting with right-sided abdominal and flank pain. Patient states that she has had right lower quadrant pain that radiates into her right flank since later this morning, 10/01. No fevers or chills, but she has been nauseated with nonbloody/nonbilious vomiting. No diarrhea or constipation. States that his pain crescendo throughout the day and is refractory to Tylenol and ibuprofen. Never had pain like this in the past. Currently 8 out of 10 and sharp. Denies urinary symptoms, abnormal vaginal discharge or bleeding, or any other concerns. Please note that above description of symptoms, in this electronic medical record under categorization of recalled from ER triage doctor by RN are reflective of an initial nursing assessment, however, is not reflective of my full history and physical exam that was personally taken and clarified. Consequentially, this preceding description of symptoms, which may include the patient's categorized chief complaint in the EMR, do not reflect my personal clinical impression, and the ultimate description of history of present illness and patient stated complaints should be deferred to this section of the note. Unless stated otherwise or congruent with this section of the note, additional signs, symptoms, or incongruence should be interpreted as inaccurate with my clinical impression. Related Data Home Medications Medication Instructions Recorded Confirmed aspirin 81 mg tablet,delayed 81 mg PO DAILY 11/15/18 12/16/18 release (Adult Low Dose Aspirin) bupropion HCl 150 mg 24 hr tablet, 150 mg PO DAILY 11/15/18 12/16/18 extended release lamotrigine 100 mg tablet 100 mg PO DAILY 11/15/18 12/16/18 levothyroxine 150 mcg capsule 150 mcg PO DAILY 11/15/18 12/16/18 pantoprazole 40 mg tablet,delayed 40 mg PO DAILY 11/15/18 12/16/18 release topiramate 25 mg capsule,extended 25 mg PO DAILY 11/15/18 12/16/18 release 24 hr Previous Rx's Medication Instructions Recorded benzonatate 100 mg capsule 100 mg PO TIDP PRN Cough #30 caps 05/22/20 cefdinir 300 mg capsule 300 mg PO BID #20 caps 05/22/20 amoxicillin 875 mg-potassium 1 tab PO Q12H 7 days #14 tabs 03/20/21 clavulanate 125 mg tablet methylprednisolone 4 mg tablet 4 mg PO DIRECTED #21 tabs 03/20/21 sod picosulf 10 mg-magnes 3.5 175 ml PO DAILY 2 doses #350 mL 06/05/23 gram-citric 12 gram/175 mL oral solution (Clenpiq) ketorolac 10 mg tablet 10 mg PO Q8H PRN pain 1 day #10 10/02/23 tabs Allergies Allergy/AdvReac Type Severity Reaction Status Date / Time hydrocodone [From Vicoprofen] Allergy Severe itching Verified 12/16/18 14:18 ibuprofen [From Vicoprofen] Allergy Severe itching Verified 12/16/18 14:18 erythromycin base Allergy Verified 05/22/20 17:41 [facility] Disclaimer: The information contained in this section may have been updated after the patient was seen, as this information can be updated by other users. Social History Smoking Status: Current every day smoker tobacco type: cigarettes packs per day: 1 second hand exposure: Yes alcohol intake: never current occupational status: other Travel in the last 8 weeks: None ROS Obtained: Yes All systems reviewed & no additional complaints except as documented Physical Exam General General appearance: alert and in no apparent distress Head Head exam: atraumatic and normocephalic Eye Eye exam: Present normal appearance, PERRL and EOMI ENT ENT exam: Present mucous membranes moist Neck Neck exam: Present normal inspection, full ROM and trachea midline Respiratory Respiratory exam: Present normal lung sounds bilaterally; Absent respiratory distress, wheezes, stridor, accessory muscle use or prolonged expiratory phase Cardiovascular Cardiovascular exam: Present regular rate and normal rhythm Abdominal Exam Abdominal exam: Present soft, tenderness, rebound, Rovsing's sign and tenderness at McBurney's Point; Absent distention, guarding, rigidity or Plummer's sign Abdominal tenderness: Present mild Extremities Exam Extremities exam: Absent edema Neurological Exam Neurological exam: Present alert, oriented X3, CN II-XII intact and normal gait; Absent motor sensory deficit Skin Skin exam: Present warm and dry; Absent diaphoresis or erythema Medical Decision Making Medical Records Medical records reviewed: Yes I reviewed the patient's medical records. Ciaran Inquiry Pt receiving controlled substance: No Ciaran was queried for this patient: No Vital Signs: 10/02/23 20:42 10/02/23 21:30 Temperature 98.3 F Temperature Source Oral Pulse Rate 65 Pulse Rate [Left] 71 Respiratory Rate 16 Blood Pressure 145/90 H Blood Pressure [Right Arm] 136/87 Blood Pressure Mean 101 Blood Pressure Mean [Right Arm] 103 Blood Pressure Source [Right Arm] Automatic Cuff Blood Pressure Position [Right Arm] Sitting 02 Sat by Pulse Oximetry 97 97 Oxygen Delivery Method Room Air Lab Data Lab Results 10/02/23 20:58: Urine Color Yellow, Urine Appearance Clear, Urine pH 8.0, Ur Specific [place] 1.020, Urine Protein Negative, Urine Glucose (UA) Negative, Urine Ketones Negative, Urine Blood Negative, Urine Nitrate Negative, Urine Bilirubin Negative, Urine Urobilinogen 0.2, Ur Leukocyte Esterase Negative, Urine WBC 3-5, Ur Squamous Epith Cells 10-20, Urine Bacteria 1+ 10/02/23 21:04: WBC 5.8, RBC 4.33, Hgb 14.0, Hct 43.0, MCV 99.3 H, MCH 32.4 H, MCHC 32.6, RDW 13.2, Plt Count 223, MPV 7.9, Neut % (Auto) 57.1, Lymph % (Auto) 33.9, Bibb % (Auto) 4.1, Eos % (Auto) 3.5, Baso % (Auto) 1.4, Neut # (Auto) 3.3, Lymph # (Auto) 2.0, Bibb # (Auto) 0.2, Eos # (Auto) 0.2, Baso # (Auto) 0.1, Sodium 140, Potassium 3.7, Chloride 105, Carbon Dioxide 26, Anion Gap 12.7, BUN 10, Creatinine 0.70, Estimated Creat Clear 115, Estimated GFR 90, Est GFR ( Amer) 109, Glucose 102 H, Calcium 9.1, Total Bilirubin 0.4, AST 22, ALT 16, Alkaline Phosphatase 41, Total Protein 6.4, Albumin 4.0, Globulin 2.4, Albumin/Globulin Ratio 1.7, Lipase 112 10/02/23 21:04 10/02/23 21:04 Orders (Tests/Meds): ED MEDICATIONS Generic Name Dose Route Start Last Admin Trade Name Freq PRN Reason Stop Dose Admin Sodium Chloride 10 ml 10/02/23 21:18 10/02/23 21:19 Sodium Chloride 0.9% 10ml Syr (Rad Only) IV 11/01/23 21:17 10 ml NEEDED PRN Administration Maintain IV Site Discontinued Medications Generic Name Dose Route Start Last Admin Trade Name Freq PRN Reason Stop Dose Admin Diphenhydramine HCl 25 mg 10/02/23 20:58 10/02/23 21:23 Diphenhydramine 50mg/Ml Vial IV 10/02/23 20:59 25 mg ONCE ONE Administration Lactated Ringer's 1,000 mls @ 999 mls/hr 10/02/23 20:57 10/02/23 21:23 Lactated Ringer's 1000 Ml Bag IV 10/02/23 21:57 999 mls/hr .Q1H1M ONE Administration Iopamidol 75 ml 10/02/23 21:18 10/02/23 21:19 Iopamidol-370 (76%);100ml Bottle IV 10/02/23 21:19 75 ml ONCE ONE Administration Ketorolac Tromethamine 15 mg 10/02/23 20:57 10/02/23 21:23 Ketorolac 30mg/Ml Vial IV 10/02/23 20:58 15 mg ONCE ONE Administration ORDERS Category Date Time Status CT abdomen pelvis w con Stat Cat Scan 10/02/23 20:59 Completed CBC w/Auto Diff [Complete Blood Count Auto Diff] Stat Lab 10/02/23 21:04 Completed CMP [Comprehensive Metabolic Panel] Stat Lab 10/02/23 21:04 Completed Lactic Acid Stat Lab 10/02/23 20:57 Ordered Lipase Stat Lab 10/02/23 21:04 Completed UA [Urinalysis and Microscopic] Stat Lab 10/02/23 20:58 Completed Medical Decision Narrative: 47-year-old female history of hypertension, cholecystectomy, tubal ligation presenting with right-sided abdominal and flank pain. Patient states that she has had right lower quadrant pain that radiates into her right flank since later this morning, 10/01. No fevers or chills, but she has been nauseated with nonbloody/nonbilious vomiting. No diarrhea or constipation. States that his pain crescendo throughout the day and is refractory to Tylenol and ibuprofen. Never had pain like this in the past. Currently 8 out of 10 and sharp. Denies urinary symptoms, abnormal vaginal discharge or bleeding, or any other concerns. History was obtained via conversation with patient. On arrival, patient hemodynamically stable, alert, oriented x4, appropriate, GCS 15, moving all extremities spontaneously, pupils equal and reactive to light. Full physical exam performed and significant for patient does have right lower quadrant pain with left lower quadrant palpation and rebound tenderness. Abdomen is soft, nondistended. No overlying skin changes. No superficial skin tenderness. She does have right flank tenderness to percussion, no left flank tenderness. Cardiopulmonary exam within normal limits. Differential includes PUD, gastritis, enteritis, gastroenteritis, pancreatitis, SBO, colitis, diverticulitis, nephrolithiasis, UTI, cholecystitis, choledocholithiasis, appendicitis, hepatitis, torsion, aortic pathology, mesenteric ischemia among others. Patient was given Toradol, acetaminophen, LR, Benadryl for symptomatic management and correction of underlying abnormalities. Workup independently interpreted and significant for nonactionable CBC or chemistry, urinalysis negative. CT of the abdomen pelvis with normal appendix, normal bowel, she does have bilateral ovarian cysts with some free fluid concerning for ruptured ovarian cyst. See radiology read for full review of final results. nOn reevaluation, patient feeling much better, tired from Benadryl. Abdominal exam benign on repeat exam. Because patient at baseline without signs or symptoms of clinical decompensation, deemed appropriate for discharge. Results were relayed to patient who voiced understanding and were agreeable to outpatient management and follow up. I discussed my clinical impression with patient and answered all questions. At this time, the evidence for any other entities in the differential is insufficient to warrant any further testing or ED observation. This was explained as well. Advisory was given that persistent or worsening symptoms require further evaluation. I confirmed the understanding of this discussion. Critical Care Critical Care Time Critical Care Time: No
[2023-10-02 22:30] VITALS: BP 118/86; PULSE 61; O2SAT 95
[2023-10-02 22:57] VITALS: BP 118/86; PULSE 67; RESP 16; TEMP 36.6; O2SAT 98
== END 2023-10-02 22:59 | disposition home or self-care (01) ==
PROVIDERS: Emergency Provider Emergency Medicine; PCP Internal Medicine Adolescent Medicine
DX: N83.209 Unspecified ovarian cyst, unspecified side (principal); R10.31 Right lower quadrant pain; R11.0 Nausea; F17.210 Nicotine dependence, cigarettes, uncomplicated
CPT/HCPCS: 74177; 80053; 81001; 83690; 85025; 96361; 96374; 96375; 99284; Q9967